=== PATIENT | male | born 1980 | race Asian ===

== ENCOUNTER 2019-12-30 04:39 | Emergency (ER) | payer OTHER ==
[2019-12-30] MEDS ORDERED: MORPHINE SULFATE 2 MG/ML 1ML SYG ONE (05:03)
[2019-12-30] MEDS ORDERED: METOCLOPRAMIDE 10 MG/2 ML VIAL ONE (05:03)
[2019-12-30] MEDS ORDERED: ONDANSETRON HCL 4 MG/2 ML VIAL ONE (05:03)
[2019-12-30] MEDS ORDERED: IOHEXOL-350 75 ML VIAL IV ONE (05:34)
[2019-12-30] MEDS ORDERED: TAMSULOSIN HCL 0.4 MG CAP.ER.24H ONE (06:52)
[2019-12-30] MEDS ORDERED: KETOROLAC TROMETHAMINE 30MG/ML ONE (06:52)
== END 2019-12-30 07:49 | disposition home or self-care (01) ==
LOC: EDH 04:39
DX: N20.1 Calculus of ureter (principal)
CPT/HCPCS: 36415; 74177; 80053; 81001; 82550; 83605; 83690; 85025; 85610; 85730; 96374; 96375; 99285; J1885; J2405; J2765; Q9967